=== PATIENT | male | born 1950 | race Caucasian/White ===

== ENCOUNTER 2018-09-23 06:26 | Day surgery (SDC) | payer OTHER ==
[~2018-09-23] VITALS: Ht 180.3 cm; Wt 160.0 kg
[~2018-09-23 06:26] MED LIST: ACID REDUCER 1150 MG PO; ALBU90OI6 INH; ALL DAY ALLERGY10 M1 PO; AMLO10 PO; ATOR40TA PO; BACL10 PO; BUPR150T2; CAVERJECT INJ; DIAZ5 PO; DOCU100 PO; DULO60 PO; Depo-Testos200 MG/ML IM; EPIN.3I IM; FAMO40 PO; FINA5 PO; FURO40 PO; GABA300 PO; HYDCHL12.5 PO; LIDO2L MM; LISI20 PO; MAGOXI400 PO; METF500 PO; NIFE30ER PO; OXYACE7.5T PO; PRAV20 PO; PRED20 PO; Percocet 7.5-31 EACH PO; Prilosec Otc20 MG PO; TAMS.4ER PO; TRAZ100 PO; VITAMIN D31000 UNIT PO; [UNRECOGNIZED DRUG - REMARK]; [UNRECOGNIZED DRUG - REMARK] PO
[2018-09-23] MEDS ORDERED: ASPI81CH PO (09:43)
[2018-09-23] MEDS ORDERED: METO25ER PO (09:43)
--- NOTE | 2018-09-23 12:32 | NUR ---
ASSUMED CARE FOR DC SIGNATURE PURPOSES ONLY. PT FOUND DRESSED IN PERSONAL CLOTHING, WITH FEMALE (? SIGNIFICANT OTHER?) AT SIDE. PT PRESENTED WITH AND SIGNED ACKNOLEDGEMENTS FOR OVERALL DC, RECEIPT OF AFTER-CARE INSTRUCTIONS AND FINAL RECONCILED MEDICATIONS. IV DC'D WITH CANNULA TIP INTACT. FOLDED 2X2 GAUZE PLACED WITH COBAN WRAP. R FA SPLINT REMOVED AND TR BAND (COMPLETELY DEFLATED PREVIOUSLY) WAS REMOVED. SITE IS CLEAN WITHOUT EVIDENCE OF OOZE OR HEMATOMA AT ANY TIME. DSG APPLIED AND SPLINT REPLACED TO ANTERIOR FA. BASIC AFTER-CARE REMINDERS PROVIDED RELATIVE TO IMMOBILITY, FUTURE REMOVAL OF SPLINT AND DSG CHANGE. DC'D BY AMBULATION WITH ACCOMPANYING FEMALE AFTER OBSERVING NO ALTERATION IN BALANCE OR GAIT.
== END 2018-09-23 12:25 | disposition home or self-care (01) ==
LOC: MHTC 06:26
PROC: B2111ZZ Fluoroscopy of Multiple Coronary Arteries using Low Osmolar Contrast (ICD-10-PCS; principal; 2018-09-23)
PROC: 4A033BC Measurement of Arterial Pressure, Coronary, Percutaneous Approach (ICD-10-PCS; principal; 2018-09-23)
PROC: 4A023N7 Measurement of Cardiac Sampling and Pressure, Left Heart, Percutaneous Approach (ICD-10-PCS; principal; 2018-09-23)
DX: I25.10 Atherosclerotic heart disease of native coronary artery without angina pectoris (principal); E78.00 Pure hypercholesterolemia, unspecified; E78.5 Hyperlipidemia, unspecified; I12.9 Hypertensive chronic kidney disease with stage 1 through stage 4 chronic kidney disease, or unspecified chronic kidney disease; E11.22 Type 2 diabetes mellitus with diabetic chronic kidney disease; N18.9 Chronic kidney disease, unspecified; E66.01 Morbid (severe) obesity due to excess calories; J45.909 Unspecified asthma, uncomplicated
CPT/HCPCS: 82947; 85347; 93458; 93571; 99152; 99153; C1769; C1887; C1894; J1644; J2250; J3010; J7030; Q9967

== ENCOUNTER 2020-03-12 05:54 | Day surgery (SDC) | payer OTHER ==
[~2020-03-12] VITALS: Ht 177.8 cm; Wt 158.3 kg
[~2020-03-12 05:54] MED LIST changes: +ASPI81CH PO; +METO25ER PO
--- NOTE | 2020-03-12 07:31 | NUR ---
03/12/20 0730 Alexandro Douglass Bite Block Placed. 3-LEAD EKG REVIEWED WITH PHYSICIAN PRIOR TO START OF PROCEDURE. History, Chart, Medications and Allergies reviewed before start of procedure.MONITOR INTACT WITH CONTINUOUS PULSE OXIMETRY AND INTERMITTENT BP.O2 VIA N/C INTACT THROUGHOUT SEDATION/PROCEDURE.See Anesthesia record.
--- NOTE | 2020-03-12 08:24 | NUR ---
"DAY SURGERY RN | DISCHARGE VSS. A/O. DISCHARGE INSTRUCTIONS GIVEN. STEADY ON FEET. TAKEN IN WHEELCHAIR TO FRONT ENTRANCE. IS RIDE HOME."
== END 2020-03-12 22:48 | disposition home or self-care (01) ==
LOC: ORSCMMR 05:54 → ORD 07:30 → ORSCMMR 22:48
PROVIDERS: Surgery
PROC: 0DBK8ZX Excision of Ascending Colon, Via Natural or Artificial Opening Endoscopic, Diagnostic (ICD-10-PCS; principal; 2020-03-12 07:30)
PROC: 0DBN8ZX Excision of Sigmoid Colon, Via Natural or Artificial Opening Endoscopic, Diagnostic (ICD-10-PCS; principal; 2020-03-12 07:30)
PROC: 0DBM8ZX Excision of Descending Colon, Via Natural or Artificial Opening Endoscopic, Diagnostic (ICD-10-PCS; principal; 2020-03-12 07:30)
PROC: 0DBP8ZX Excision of Rectum, Via Natural or Artificial Opening Endoscopic, Diagnostic (ICD-10-PCS; principal; 2020-03-12 07:30)
DX: Z12.11 Encounter for screening for malignant neoplasm of colon (principal); D12.2 Benign neoplasm of ascending colon; D12.4 Benign neoplasm of descending colon; D12.5 Benign neoplasm of sigmoid colon; K62.1 Rectal polyp; Z86.010 Personal history of colon polyps; E11.9 Type 2 diabetes mellitus without complications; I10 Essential (primary) hypertension; E03.9 Hypothyroidism, unspecified; F41.8 Other specified anxiety disorders; G47.33 Obstructive sleep apnea (adult) (pediatric); E66.01 Morbid (severe) obesity due to excess calories; Z68.43 Body mass index [BMI] 50.0-59.9, adult; Z79.82 Long term (current) use of aspirin; Z79.84 Long term (current) use of oral hypoglycemic drugs; Z79.899 Other long term (current) drug therapy
CPT/HCPCS: 82947; 88305; J2704; J7120

== ENCOUNTER 2022-09-12 20:59 | Emergency (ER) | payer OTHER ==
[~2022-09-12] VITALS: Ht 177.8 cm; Wt 106.6 kg
[2022-09-12] MEDS ORDERED: FAMO20 PO (23:30)
[2022-09-12] MEDS ORDERED: PRED20 PO (23:30)
== END 2022-09-12 23:54 | disposition home or self-care (01) ==
LOC: ER 20:59
DX: T78.3XXA Angioneurotic edema, initial encounter (principal); Z79.82 Long term (current) use of aspirin; Z79.899 Other long term (current) drug therapy; Z79.84 Long term (current) use of oral hypoglycemic drugs
CPT/HCPCS: 36415; 93005; 93010; J2930